=== PATIENT | male | born 2000 | race Two or more races ===

== ENCOUNTER 2024-10-16 04:53 | Emergency (ER) | payer OTHER ==
[~2024-10-16] VITALS: Ht 180.3 cm; Wt 93.9 kg
[2024-10-16] MEDS ORDERED: FAMOTIDINE/PF 20 MG in 0.9 % SODIUM CHLORIDE 8 ML IV PUSH STA (05:14)
[2024-10-16] MEDS ORDERED: 0.9 % SODIUM CHLORIDE 500 ML IV SCH (05:15)
[2024-10-16] MEDS ORDERED: ONDANSETRON HCL 2 MG/ML VIAL IV ONE (05:15)
[2024-10-16] MEDS ORDERED: ONDANSETRON HCL 2 MG/ML VIAL ONE (05:22)
[2024-10-16] MEDS ORDERED: FAMOTIDINE/PF 20 MG/2 ML VIAL ONE (05:22)
[2024-10-16 05:29] LABS: BASO % 0.7 % (0.1-1.2); EOS % 5.9 % (0.7-7.0); HEMATOCRIT 42.5 % (40.1-51.0); HEMOGLOBIN 14.3 g/dL (13.7-17.5); LYMPH # 2.85 (1.18-3.74); LYMPH % 28.1 % (19.3-53.1); MEAN CORPUSCULAR HEMOGLOBIN 29.4 pg (25.6-32.2); MONO # 0.77 (0.24-0.82); MONO % 7.6 % (4.7-12.5); NEUT % 57.3 % (34.0-71.1); PLATELET COUNT 314 K/uL (163-369); RED BLOOD COUNT 4.86 M/uL (4.63-6.08); RED CELL DISTRIBUTION WIDTH 12.8 % (11.6-14.4)
[2024-10-16 06:08] LABS: ALBUMIN 3.3 gm/dL (3.4-5.0); BILIRUBIN TOTAL 0.35 mg/dL (0.3-1.2); CALCIUM 8.9 mg/dL (8.5-10.1); CREATININE SERUM 1.11 mg/dL (0.70-1.30); GFR 80.07; GLOBULINA 3.8 G/DL (2.4-3.5); POTASSIUM 3.56 mEq/L (3.5-5.1); TOTAL PROTEIN 7.1 gm/dL (6.4-8.2)
[2024-10-16] MEDS ORDERED: ZOFRAN8 MG PO (06:30)
[2024-10-16] MEDS ORDERED: PEPCID AC20 MG PO (06:30)
== END 2024-10-16 06:42 | disposition home or self-care (01) ==
LOC: ER 04:53
PROVIDERS: General Practice
DX: R11.2 Nausea with vomiting, unspecified (principal); K52.9 Noninfective gastroenteritis and colitis, unspecified; R11.10 Vomiting, unspecified